=== PATIENT | female | born 1945 | race Caucasian/White ===

== ENCOUNTER 2020-11-02 07:35 | Day surgery (SDC) | payer MEDICARE ==
[~2020-11-02] VITALS: Ht 154.9 cm; Wt 85.7 kg
[2020-11-02] MEDS ORDERED: LIDOCAINE 1%, 20ML ONE (08:20)
[2020-11-02] MEDS ORDERED: LIDOCAINE 1%, 10ML ONE ×2 (08:20→10:29)
[2020-11-02 08:21] VITALS: BP 130/82
[2020-11-02] MEDS ORDERED: CEFAZOLIN PMX 1GM/50ML 50 ML ONE (08:26)
[2020-11-02] MEDS ORDERED: CEFAZOLIN 1,000 MG in SODIUM CHLORIDE 0.9% 50 ML IV ONE (08:30)
[2020-11-02] MEDS ORDERED: FLUMAZENIL 0.1 MG/1 ML, 5ML ONE (08:59)
[2020-11-02] MEDS ORDERED: NALOXONE 1 MG/ML, 2ML ONE (08:59)
[2020-11-02] MEDS ORDERED: MIDAZOLAM 1 MG/ML, 5ML ONE (08:59)
[2020-11-02] MEDS ORDERED: FENTANYL PF 100 MCG/2ML ONE ×2 (08:59)
[2020-11-02] MEDS ORDERED: SODIUM CHLORIDE 0.9% 1,000 ML IV SCH (09:00)
[2020-11-02] MEDS ORDERED: HYDROcodone/APAP 5/325 TABLET PO ONE (12:00)
== END 2020-11-02 12:42 | disposition home or self-care (01) ==
LOC: OUT 07:35
PROVIDERS: ATTEND Pathology Hematology
DX: Z45.2 Encounter for adjustment and management of vascular access device (principal); C83.59 Lymphoblastic (diffuse) lymphoma, extranodal and solid organ sites; M19.90 Unspecified osteoarthritis, unspecified site; F32.9 Major depressive disorder, single episode, unspecified; Z88.5 Allergy status to narcotic agent; Z79.899 Other long term (current) drug therapy; Z90.49 Acquired absence of other specified parts of digestive tract; Z98.890 Other specified postprocedural states; Z90.710 Acquired absence of both cervix and uterus; Z87.891 Personal history of nicotine dependence; Z72.89 Other problems related to lifestyle
CPT/HCPCS: 36561; 76937; 77001; 99156; 99157; C1788; C1894; J0690; J1642; J2250; J3010; J7030; J2310

== ENCOUNTER 2020-11-14 06:12 | Day surgery (SDC) | payer MEDICARE ==
[~2020-11-14] VITALS: Ht 154.9 cm; Wt 85.1 kg
[2020-11-14] MEDS ORDERED: SODIUM CHLORIDE 0.9% 1,000 ML IV SCH (07:00)
[2020-11-14 07:10] VITALS: BP 131/78
[2020-11-14 07:38] LABS: BASOPHILS % (AUTO) 1 % (0-1); EOSINOPHILS % (AUTO) 9 % (1-7); LYMPHOCYTES % (AUTO) 33 % (22-44); MEAN CORPUSCULAR HEMOGLOBIN 31.4 pg (27.0-34.8); MEAN CORPUSCULAR HGB CONC 33.2 g/dL (32.4-35.8); MEAN PLATELET VOLUME 8.4 fL (7.4-10.4); MONOCYTES % (AUTO) 10 % (2-9); NEUTROPHILS % (AUTO) 47 % (42-75); PLATELET COUNT 207 x10^3/uL (130-400); RED BLOOD COUNT 4.11 x10^6/uL (3.82-5.3); RED CELL DISTRIBUTION WIDTH 13.3 % (9.6-15.2)
[2020-11-14 07:39] LABS: MD NO
[2020-11-14] MEDS ORDERED: FLUMAZENIL 0.1 MG/1 ML, 5ML ONE (07:55)
[2020-11-14] MEDS ORDERED: FENTANYL PF 100 MCG/2ML ONE (07:55)
[2020-11-14] MEDS ORDERED: MIDAZOLAM 1 MG/ML, 5ML ONE (07:55)
[2020-11-14] MEDS ORDERED: NALOXONE 1 MG/ML, 2ML ONE (07:55)
[2020-11-16] MEDS ORDERED: ACET-1600 PO (09:45)
[2020-11-16] MEDS ORDERED: LISI-167 PO (09:45)
[2020-11-16] MEDS ORDERED: DULO60CA56 PO (09:45)
[2020-11-16] MEDS ORDERED: LACT1CAP44 PO (09:45)
[2020-11-16] MEDS ORDERED: ESOM40CA PO (09:45)
[2020-11-16] MEDS ORDERED: HYDR50TA99 PO (09:45)
== END 2020-11-14 09:45 | disposition home or self-care (01) ==
LOC: OUT 06:12
PROVIDERS: ATTEND Pathology Hematology
DX: C83.39 Diffuse large B-cell lymphoma, extranodal and solid organ sites (principal); I10 Essential (primary) hypertension; Z79.899 Other long term (current) drug therapy; Z87.891 Personal history of nicotine dependence; Z88.5 Allergy status to narcotic agent; Z98.890 Other specified postprocedural states
CPT/HCPCS: 36415; 38222; 77012; 85025; 85060; 85097; 88305; 88311; 88341; 88342; 88360; 99156; 99157; J2250; J3010; J7030; 88313; J2310

== ENCOUNTER 2020-12-25 11:20 | Day surgery (SDC) | payer MEDICARE ==
[~2020-12-25] VITALS: Ht 154.9 cm; Wt 81.0 kg
[~2020-12-25 11:20] MED LIST: ACET-1600 PO; DULO60CA56 PO; ESOM40CA PO; HYDR50TA99 PO; LACT1CAP44 PO; LISI-167 PO
[2020-12-25 12:07] VITALS: BP 138/80
[2020-12-25] MEDS ORDERED: CEFAZOLIN PMX 1GM/50ML 50 ML ONE (12:16)
[2020-12-25] MEDS ORDERED: CEFAZOLIN PMX 1GM/50ML 50 ML IV ONE (12:30)
[2020-12-25] MEDS ORDERED: MIDAZOLAM 1 MG/ML, 5ML ONE (13:04)
[2020-12-25] MEDS ORDERED: FENTANYL PF 100 MCG/2ML ONE (13:04)
[2020-12-25] MEDS ORDERED: NALOXONE 1 MG/ML, 2ML ONE (13:04)
[2020-12-25] MEDS ORDERED: FLUMAZENIL 0.1 MG/1 ML, 5ML ONE (13:04)
[2020-12-25] MEDS ORDERED: LIDOCAINE 1%, 20ML ONE (13:27)
[2020-12-25] MEDS ORDERED: LIDOCAINE 1%, 10ML ONE (13:46)
[2020-12-25] MEDS ORDERED: LIDOCAINE-MPF 1%, 5ML ONE (14:15)
[2020-12-25] MEDS ORDERED: HYDROcodone/APAP 7.5-325MG/15ML UDC ONE (16:08)
[2020-12-25] MEDS ORDERED: HYDROcodone/APAP 7.5-325MG/15ML UDC PO PRN (16:30)
== END 2020-12-25 16:40 | disposition home or self-care (01) ==
LOC: OUT 11:20
PROVIDERS: ATTEND Pathology Hematology
DX: T82.594A Other mechanical complication of infusion catheter, initial encounter (principal); C83.39 Diffuse large B-cell lymphoma, extranodal and solid organ sites; I10 Essential (primary) hypertension; Z79.899 Other long term (current) drug therapy; Z87.891 Personal history of nicotine dependence; Z88.5 Allergy status to narcotic agent; Z90.49 Acquired absence of other specified parts of digestive tract; Y83.8 Other surgical procedures as the cause of abnormal reaction of the patient, or of later complication, without mention of misadventure at the time of the procedure
CPT/HCPCS: 36561; 36590; 76937; 77001; 99156; 99157; C1769; C1788; C1894; J1642; J2250; J3010; J2310

== ENCOUNTER → 2021-04-11 | Outpatient (CLI) | payer MEDICARE | END | disposition home or self-care (01) | LOC: ROC 07:17 | PROVIDERS: ATTEND Radiology Radiation Oncology | DX: C83.39 Diffuse large B-cell lymphoma, extranodal and solid organ sites (principal) | CPT/HCPCS: 99214; G0463 ==